=== PATIENT | male | born 1955 | race Caucasian/White ===

== ENCOUNTER → 2016-06-05 | Outpatient (CLI) | payer BC ==
[~2016-06-05] MED LIST: CLN200 PO; GABA-113 PO; LAMO200T38 PO; MEDLIST; MORP15TA19 PO; QUET-205 PO; SIMV10TA5 OR
--- NOTE | 2016-06-05 10:23 | DIAGNOSTIC IMAGING REPORT ---
LEFT FOOT MIN 3 VIEWS ROUTINE CLINICAL HISTORY: R-STRESS FX R-3RD Metatarsal; l-adductovarus DEFORM COMPARISON: None. DISCUSSION: The bones and joint spaces appear intact. There is no evidence of fracture, dislocation or bony disease. There is no evidence for soft tissue swelling. IMPRESSION: Negative study. Electronically signed by: Vel Henderson M.D. 06/05/2016 10:21 AM Dictated Date/Time: 06/05/2016 10:19 AM
--- NOTE | 2016-06-05 10:52 | DIAGNOSTIC IMAGING REPORT ---
RIGHT FOOT 3 VIEWS HISTORY: Right foot pain. R-STRESS FX R-3RD METATARSAL;L-ADDUCTOVARUS DEFORM Right COMPARISON: None. FINDINGS: No acute fractures within the right foot. Mild medial angulation/subluxation of the second and third toes in relation to the metatarsal heads. There is mild cartilage space narrowing, subchondral sclerosis, and subchondral cystic change at the second MTP joint. This is consistent with osteoarthritis. No abnormal periosteal reaction to suggest stress related changes. The Lisfranc joint is intact. Soft tissues are unremarkable. No radiopaque foreign bodies. IMPRESSION: 1. No acute fractures within the right foot. 2. Mild osteoarthritis at the second MTP joint. 3. Mild medial angulation/subluxation of the second and third toes in relation to the metatarsal heads. This is likely developmental. Electronically signed by: Daryl Marroquin M.D. 06/05/2016 10:50 AM Dictated Date/Time: 06/05/2016 10:47 AM
== END | disposition home or self-care (01) ==
LOC: C.RAD 09:24
PROVIDERS: ATTEND Podiatrist
DX: S92.334A Nondisplaced fracture of third metatarsal bone, right foot, initial encounter for closed fracture (principal); X58.XXXA Exposure to other specified factors, initial encounter; M21.6X2 Other acquired deformities of left foot; M19.071 Primary osteoarthritis, right ankle and foot